=== PATIENT | female | born 1980 | race Caucasian/White ===

== ENCOUNTER 2025-06-21 23:13 | Emergency (ER) | payer SELFPAY ==
[2025-06-21 23:31] VITALS: RESP 20; BMI 22.3
[2025-06-21 23:44] VITALS: BP 126/66; PULSE 114; O2SAT 97
--- NOTE | 2025-06-22 00:26 | PC.NURSE ---
pt waste/materials exchange specialist in the main, brought over by security and peripheral vascular tech Ameena, pt verbally upset with security present, pt redirected and able to bring back to room.
[2025-06-22 00:34] LABS: MANUAL DIFF FLAG NO
[2025-06-22 00:36] LABS: Hematocrit 36.1 % (37.0-47.0); Hemoglobin 12.3 g/dl (12.0-16.0); Imm Gran Abs Auto 0.02 X10*3/uL (0.00-0.03); Imm Gran Pct Auto 0.2 % (0.0-0.4); Lymphocytes Absolute Auto 4.1 X10*3/uL (1.2-4.9); Mean Corpuscular HGB Conc 34.1 g/dl (31.0-35.0); Mean Corpuscular Hemoglobin 33.0 pg (27.0-33.0); Mean Corpuscular Volume 96.8 fL (80.0-98.0); NRBC Abs Auto 0.000 X10*3/uL (0.0-0.012); NRBC Pct Auto 0.0 /100WBC (0.0-0.2); Platelet Count 454 X10*3/uL (160-400); Red Blood Count 3.73 X10*6/uL (4.20-5.50); White Blood Count 9.2 X10*3/uL (4.8-10.8)
[2025-06-22 00:42] VITALS: BP 98/57; PULSE 98; RESP 18; TEMP 36.9; O2SAT 98
[2025-06-22 00:49] LABS: Appearance Urine Clear; Glucose Urine UA Negative (Negative); PH 5.5 (5.0-9.0); Specific Gravity - Urine 1.020 (1.005-1.025); UMIC TRIGGER UACC YES
[2025-06-22 00:53] LABS: Alanine Aminotransferase 19 U/L (0-31); Albumin Level 5.1 g/dL (3.5-5.0); Alkaline Phosphatase 69 U/L (39-117); Anion Gap 17 (12-20); Aspartate Amino Transferase 34 U/L (5-31); Blood Urea Nitrogen 19 mg/dL (9-16); Calcium 9.0 mg/dL (8.4-10.2); Carbon Dioxide 21 mmol/L (22-29); Chloride 108 mmol/L (96-108); Creatinine Clr Calc Pharmacy 106.8; Estimated Glomerular Filt Rate > 60; Potassium 3.7 mmol/L (3.3-5.1); Sodium 142 mmol/L (135-145); Total Protein 8.1 g/dL (6.5-8.0)
[2025-06-22 00:55] LABS: Cannabinoid Screen Urine POSITIVE (Not Detect)
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
--- NOTE | 2025-06-22 07:25 | PC.NURSE ---
Assumed care, report received. Pt is awake, she has had breakfast and is asking to go home. A care team eval is pending.
[2025-06-22 09:07] VITALS: BP 131/88; PULSE 95; RESP 16; TEMP 36.6; O2SAT 95
[2025-06-22 10:36] VITALS: BP 131/88; PULSE 95; RESP 16; TEMP 36.6
--- NOTE | 2025-06-22 12:48 | MHC.CARE ---
Referral faxed to [facility] for a 7 day alert and 3 day follow up. Referral has been confirmed as received and has been activated.
== END 2025-06-22 10:45 | disposition home or self-care (01) ==
PROVIDERS: Emergency Provider Emergency Medicine
DX: F10.921 Alcohol use, unspecified with intoxication delirium (principal); Y90.8 Blood alcohol level of 240 mg/100 ml or more; Z88.0 Allergy status to penicillin; Z88.5 Allergy status to narcotic agent
CPT/HCPCS: 36415; 80053; 80307; 81001; 85025; 99285; S9485

== ENCOUNTER 2025-07-05 22:04 | Emergency (ER) | payer SELFPAY ==
[2025-07-05 22:12] VITALS: BP 109/84; PULSE 103; RESP 16; TEMP 36.4; O2SAT 100
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
[2025-07-06 01:41] LABS: Cannabinoid Screen Urine POSITIVE (Not Detect); UPreg QC Valid YES
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
[2025-07-06 02:40] LABS: MANUAL DIFF FLAG NO
[2025-07-06 02:43] LABS: Hematocrit 34.9 % (37.0-47.0); Hemoglobin 11.8 g/dl (12.0-16.0); Imm Gran Abs Auto 0.02 X10*3/uL (0.00-0.03); Imm Gran Pct Auto 0.2 % (0.0-0.4); Lymphocytes Absolute Auto 3.8 X10*3/uL (1.2-4.9); Mean Corpuscular HGB Conc 33.8 g/dl (31.0-35.0); Mean Corpuscular Hemoglobin 33.5 pg (27.0-33.0); Mean Corpuscular Volume 99.1 fL (80.0-98.0); NRBC Abs Auto 0.000 X10*3/uL (0.0-0.012); NRBC Pct Auto 0.0 /100WBC (0.0-0.2); Platelet Count 326 X10*3/uL (160-400); Red Blood Count 3.52 X10*6/uL (4.20-5.50); White Blood Count 9.1 X10*3/uL (4.8-10.8)
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
[2025-07-06 02:51] LABS: Alanine Aminotransferase 25 U/L (0-31); Albumin Level 4.5 g/dL (3.5-5.0); Alkaline Phosphatase 113 U/L (39-117); Anion Gap 15 (12-20); Aspartate Amino Transferase 45 U/L (5-31); Blood Urea Nitrogen 21 mg/dL (9-16); Calcium 9.6 mg/dL (8.4-10.2); Carbon Dioxide 25 mmol/L (22-29); Chloride 109 mmol/L (96-108); Creatinine Clr Calc Pharmacy 85.6; Estimated Glomerular Filt Rate > 60; Potassium 3.5 mmol/L (3.3-5.1); Sodium 145 mmol/L (135-145); Total Protein 7.3 g/dL (6.5-8.0)
[2025-07-06 02:58] LABS: Acetaminophen LAB < 3 mcg/mL (<30); Salicylate < 5.0 mg/dL (15-30)
[2025-07-06 02:59] VITALS: BP 77/50; PULSE 94; RESP 16; TEMP 36.3; O2SAT 100
[2025-07-06 06:00] VITALS: BP 112/75; PULSE 83; RESP 16; TEMP 36.6; O2SAT 99
--- NOTE | 2025-07-06 08:28 | PC.NURSE ---
Assumed care, report received. Pt is slow to wake and is brought breakfast, she is just being seen by the care team, she is currently calm and cooperative.
[2025-07-06 08:37] VITALS: BP 112/75; PULSE 83; RESP 16; TEMP 36.6
--- NOTE | 2025-07-06 08:38 | MHC.CARE ---
Pt does not meet the criteria for a higher level of care or present as an imminent risk and will D/C home. Pt declined all services. ED provider in agreeement.
== END 2025-07-06 08:38 | disposition home or self-care (01) ==
PROVIDERS: Emergency Provider Emergency Medicine
DX: F23 Brief psychotic disorder (principal); F22 Delusional disorders; F10.10 Alcohol abuse, uncomplicated; Y90.7 Blood alcohol level of 200-239 mg/100 ml; F43.10 Post-traumatic stress disorder, unspecified; Z88.0 Allergy status to penicillin; Z88.5 Allergy status to narcotic agent
CPT/HCPCS: 36415; 80053; 80143; 80179; 80307; 81025; 85025; 96372; 99285; J1630; J2250; S9485